=== PATIENT | male | born 1985 | race Two or more races ===

== ENCOUNTER 2019-04-04 04:44 | Emergency (ER) | payer SELFPAY ==
[~2019-04-04] VITALS: Ht 185.4 cm; Wt 93.0 kg
[2019-04-04] MEDS ORDERED: FAMOTIDINE (20 MG) 20 MG TABLET ONE (06:26)
[2019-04-04] MEDS ORDERED: predniSONE 20 MG TABLET ONE (06:26)
[2019-04-04] MEDS ORDERED: diphenhydrAMINE HCL 50 MG CAPSULE ONE (06:26)
[2019-04-04] MEDS ORDERED: predniSONE 20 MG TABLET PO ONE (06:30)
[2019-04-04] MEDS ORDERED: diphenhydrAMINE HCL 25 MG CAPSULE PO ONE (06:30)
[2019-04-04] MEDS ORDERED: FAMOTIDINE (20 MG) 20 MG TABLET PO ONE (06:30)
--- NOTE | 2019-04-04 06:30 | NUR ---
BIBS. C/O "WAS DRINKING FLUID. BEE WAS ON LID. GOT STUNG ON LIP" VSS [id number]. -RESP DISTRESS. VSS AT THIS TIME.
[2019-04-04 07:00] VITALS: BP 131/88
== END 2019-04-04 07:00 | disposition home or self-care (01) ==
LOC: ER 04:50
DX: T63.441A Toxic effect of venom of bees, accidental (unintentional), initial encounter (principal); Z88.0 Allergy status to penicillin; Y92.89 Other specified places as the place of occurrence of the external cause
CPT/HCPCS: 99284; J7512; Q0163